=== PATIENT | female | born 1965 ===

== ENCOUNTER 2017-08-23 08:45 | Emergency (ER) | payer OTHER ==
[~2017-08-23] VITALS: Ht 160 cm; Wt 61.2 kg
== END 2017-08-23 10:18 | disposition home or self-care (01) ==
LOC: ER 08:45
DX: S61.211A Laceration without foreign body of left index finger without damage to nail, initial encounter (principal); W26.0XXA Contact with knife, initial encounter; Y93.89 Activity, other specified; Y92.098 Other place in other non-institutional residence as the place of occurrence of the external cause; Y99.8 Other external cause status